=== PATIENT | female | born 1985 | race Caucasian/White ===

== ENCOUNTER 2017-05-13 06:07 | Emergency (ER) | payer SELFPAY ==
[2017-05-13] MEDS ORDERED: MORPHINE SULFATE INJ 4 MG ONE (06:13)
[2017-05-13] MEDS ORDERED: MORPHINE SULFATE INJ 4 MG IVP ONE (06:14)
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
[2017-05-13] MEDS ORDERED: HYDROGEN PEROXIDE 3% ONE (06:19)
[2017-05-13 06:25] VITALS: BP 146/69; BMI 20.5
[2017-05-13] MEDS ORDERED: NS 1000 ML 1,000 ML ONE (06:33)
[2017-05-13] MEDS ORDERED: XYLOCAINE 1% and EPINEPHRINE 1:100,000 ONE (06:35)
[2017-05-13 06:48] LABS: BASOPHILS # (AUTO) 0.2 X10^3/uL (0.0-0.1); EOSINOPHILS # (AUTO) 0.2 x10^3/uL (0.0-0.2); EOSINOPHILS % (AUTO) 2.4 % (0.9-2.9); HEMATOCRIT 43.3 % (36.0-47.0); HEMOGLOBIN 14.9 g/dL (12.0-16.0); LYMPHOCYTES # (AUTO) 4.1 X10^3/uL (1.3-2.9); LYMPHOCYTES % (AUTO) 47.9 % (21.0-51.0); MEAN CORPUSCULAR HEMOGLOBIN 31.9 pg (27.0-34.0); MEAN CORPUSCULAR HGB CONC 34.4 g/dL (33.0-35.0); MEAN CORPUSCULAR VOLUME 92.7 fL (80.0-100.0); MEAN PLATELET VOLUME 9.4 fL (7.4-11.0); MONOCYTES # (AUTO) 0.5 x10^3/uL (0.3-0.8); MONOCYTES % (AUTO) 6.4 % (0.0-13.0); NEUTROPHILS # (AUTO) 3.5 x10^3/uL (2.2-4.8); NEUTROPHILS % (AUTO) 41.3 % (42.0-75.0); PLATELET COUNT 245 X10^3/uL (150.0-450.0); RED BLOOD COUNT 4.67 X10^6/uL (3.5-5.4); RED CELL DISTRIBUTION WIDTH 12.6 % (11.6-16.5); WHITE BLOOD COUNT 8.5 X10^3/uL (3.6-10.0)
[2017-05-13 06:56] LABS: ALANINE AMINOTRANSFERASE 22 Units/L (12-78); ALBUMIN 3.8 g/dL (3.4-5.0); ALKALINE PHOSPHATASE 61 Units/L (46-116); ASPARTATE AMINO TRANSFERASE 18 Units/L (15-37); BLOOD UREA NITROGEN 7 mg/dL (7-18); CALCIUM 8.3 mg/dL (8.5-10.1); CARBON DIOXIDE 19.6 mmol/L (21-32); CHLORIDE 104 mmol/L (98-107); COR NA(FOR HYPERGLY) 141 mmol/L (136-145); CREATININE 0.85 mg/dL (0.55-1.02); GLUCOSE 126 mg/dL (65-99); SODIUM 140 mmol/L (136-145); TOTAL PROTEIN 7.7 g/dL (6.4-8.2); eGFR BLACK RACES > 60 (>60); eGFR NON BLACK RACES > 60 (>60)
[2017-05-13] MEDS ORDERED: NS 1000 ML 1,000 ML IV SCH (07:00)
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
[2017-05-13] MEDS ORDERED: DILAUDID INJ IVP ONE (07:13)
[2017-05-13] MEDS ORDERED: DILAUDID INJ ONE (07:15)
[2017-05-13] MEDS ORDERED: ADACEL TDaP IM ONE ×2 (08:21→08:26)
== END 2017-05-13 09:10 | disposition home or self-care (01) ==
LOC: ER 06:07
PROC: 0WQ20ZZ Repair Face, Open Approach (ICD-10-PCS; principal; 2017-05-13)
DX: S01.01XA Laceration without foreign body of scalp, initial encounter (principal); S01.511A Laceration without foreign body of lip, initial encounter; S02.81XA Fracture of other specified skull and facial bones, right side, initial encounter for closed fracture; S02.2XXA Fracture of nasal bones, initial encounter for closed fracture; X58.XXXA Exposure to other specified factors, initial encounter; Y92.9 Unspecified place or not applicable
CPT/HCPCS: 12013; 36415; 70450; 80053; 85025; 90471; 96365; 96367; 96374; 96375; 99283; A4222; J2001; J2270

== ENCOUNTER 2017-05-14 08:01 | Emergency (ER) | payer SELFPAY ==
[2017-05-14 08:05] VITALS: BP 134/81; BMI 23.1
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
== END 2017-05-14 08:59 | disposition home or self-care (01) ==
LOC: ER 08:18
DX: S00.83XS Contusion of other part of head, sequela (principal); Y33.XXXA Other specified events, undetermined intent, initial encounter; Y92.9 Unspecified place or not applicable
CPT/HCPCS: 99281; 99282